=== PATIENT | female | born 2000 | race Caucasian/White ===

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

== ENCOUNTER 2019-08-13 17:14 | Emergency (ER) | payer BC, OTHER ==
--- NOTE | 2019-08-13 17:38 | EDM.PDOC ---
ED HPI GENERAL MEDICAL PROBLEM - General Chief Complaint: Lower Extremity Injury/Pain Stated Complaint: FELL DOWN STAIRS Time Seen by Provider: 08/13/19 17:30 Source of Information: Reports: Patient History Limitations: Reports: No Limitations - History of Present Illness INITIAL COMMENTS - FREE TEXT/NARRATIVE: Patient comes in the emergency department with complaints of left foot injury. Patient was walking down a flight of stairs at home misstepped on last 2 stairs and fell. She does not know how she landed on her foot other than she did notice severe pain initially rate after the injury. She denies hitting her head or any other extremity. She states that she has numbing and tingling sensation and she is unable to move her great toe due to the pain. She also noted that there was swelling initially after the injury. She did apply ice and elevate it at home prior to arrival to the emergency department. Pt denies any other injuries to that extremity in the past. The pain is more tolerable if she is resting on it. However she is unable to bear weight due to the pain Onset: Sudden Quality: Reports: Throbbing Severity: Moderate Improves with: Reports: Cold Therapy, Immobilization, Rest Worsens with: Reports: Movement Context: Reports: Activity Associated Symptoms: Reports: No Other Symptoms Left Feet Pain Score (Numeric/FACES): 7 - Related Data Allergies Allergy/AdvReac Type Severity Reaction Status Date / Time amoxicillin [From Augmentin] Allergy Vomiting Verified 08/13/19 17:36 clavulanic acid Allergy Vomiting Verified 08/13/19 17:36 [From Augmentin] Home Meds: Home Meds Escitalopram Oxalate 10 mg PO DAILY 08/13/19 [History] Norgestimate-Ethinyl Estradiol [Dawes-Linyah 28 Tablet] 1 each PO DAILY 08/13/19 [History] Propranolol HCl [Propranolol] 60 mg PO DAILY 08/13/19 [History] Past Medical History - Past Health History Medical/Surgical History: Denies Medical/Surgical History Review of Systems - Review of Systems Review Of Systems: Comprehensive ROS is negative, except as noted in HPI. Constitutional: Reports: No Symptoms Eyes: Reports: No Symptoms Ears: Reports: No Symptoms Nose: Reports: No Symptoms Mouth/Throat: Reports: No Symptoms Respiratory: Reports: No Symptoms Cardiovascular: Reports: No Symptoms GI/Abdominal: Reports: No Symptoms Genitourinary: Reports: No Symptoms Skin: Reports: No Symptoms ED EXAM, GENERAL - Physical Exam Exam: See Below Exam Limited By: No Limitations General Appearance: Alert, WD/WN, No Apparent Distress Respiratory/Chest: No Respiratory Distress, No Accessory Muscle Use, Chest Non- Tender Cardiovascular: Normal Peripheral Pulses, Regular Rate, Rhythm, No Edema Peripheral Pulses: 4+: Popliteal (L), Popliteal (R), Dorsalis Pedis (L), Dorsalis Pedis (R) Extremities: No Pedal Edema, Normal Capillary Refill Neurological: Alert, Oriented, Normal Cognition, Other (left foot. moderate swelling top/medial aspect of foot. Ecchymosis formation noted. EMS intact. Limited range of motion due to pain with flexion and external rotation) Psychiatric: Normal Affect Skin Exam: Warm, Dry, Intact, Normal Color Course - Vital Signs Last Recorded V/S: Last Vital Signs Temp 37.3 C 08/13/19 17:20 Pulse 60 08/13/19 17:20 Resp 16 08/13/19 17:20 BP 121/60 08/13/19 17:20 Pulse Ox 98 08/13/19 17:20 Departure - Departure Time of Disposition: 18:15 Disposition: Home, Self-Care 01 Condition: Good Clinical Impression: Fracture of proximal phalanx of toe of left foot Phalanges fracture, foot Qualifiers: Encounter type: initial encounter Toe: great toe Fracture type: closed Phalanx : distal Fracture alignment: nondisplaced Laterality: left Qualified Code(s): S92.425A - Nondisplaced fracture of distal phalanx of left great toe, initial encounter for closed fracture - Discharge Information *PRESCRIPTION DRUG MONITORING PROGRAM REVIEWED*: Not Applicable *COPY OF PRESCRIPTION DRUG MONITORING REPORT IN PATIENT VANNA: Not Applicable Instructions: RICE for Routine Care of Injuries, Toe Fracture, [id number], Cast or Splint Care, Adult, [id number], Pain Medicine Instructions, Easy-to- Read Forms: ED Department Discharge, ED Return to Work/School Form Additional Instructions: 1. rest 2. elevated the extremity above the level of the heart reduce swelling 3. Can place ice on affected extremity 3-4 times a day 20 minutes at a time 4. Can take Tylenol and ibuprofen as needed for pain and discomfort 5. Use splinting to help with compression to reduce swelling 6. Activity and diet as tolerated 7. Follow-up if not better within 2 weeks with orthopedic speciality for management 8. Remain non weightbearing on that foot until evaluated by orthopedic speciality 9. Use crutches to help with mobility 10. Call with any questions or concerns Sepsis Event Note - Evaluation Sepsis Screening Result: No Definite Risk - Focused Exam Vital Signs: Vital Signs Temp Pulse Resp BP Pulse Ox 08/13/19 17:20 37.3 C 60 16 121/60 98 Date Exam was Performed: 08/13/19 Time Exam was Performed: 18:12 - Assessment/Plan Assessment:: 1. left foot pain 2. Proximal phalanx fracture along the lateral and proximal base and distal phalanx fracture of the medial base extending through the subchondral endplate of the interphalangeal articulation Plan: 1. x-ray of left foot. Completed in the ER. Results reviewed with patient 2. Splinting/surgical boot with crutches applied to help with comfort 3. Education regarding RICE, immobilization, activity, diet, [id number] medication use, and follow-up care provided 4. Patient is educated to follow up with Orthopedic in 2 weeks for re- evaluation of foot. 5. Non weight bearing of the left foot until cleared by orthopedic 6. Patient requested work note through Sunday due to needing to stand for long periods of time 7. All questions and concerns were addressed prior to patient's discharge
--- NOTE | 2019-08-13 18:08 | CR ---
[id number] RAD/RAD Foot Left 3V Min Exam: RAD Foot Left 3V Min Indication:FALL DOWNSTAIRS,MOST POST AROUND BASE OF BIG TOE. Comparison: No prior imaging for comparison. Discussion: Acute nondisplaced fracture of the 1st digit phalanges. Distal phalanx fracture at its medial base extending through the subchondral endplate of the interphalangeal articulation. Proximal phalanx fracture is a capsular avulsion-type fracture along its lateral and proximal base. No other fractures are identified. No dislocation. Accessory ossicle adjacent to the dorsal navicular bone at the talonavicular articulation seen on lateral view. Impression: Acute nondisplaced fractures of the 1st digit phalanges, described above. Bernabe Patricio MD 08/13/19 [id number] Thank you for allowing us to participate in the care of your patient.
== END 2019-08-13 18:42 | disposition home or self-care (01) ==
LOC: VM.ED 17:14
DX: S92.415A Nondisplaced fracture of proximal phalanx of left great toe, initial encounter for closed fracture (principal); Z88.1 Allergy status to other antibiotic agents; Z79.899 Other long term (current) drug therapy; W10.8XXA Fall (on) (from) other stairs and steps, initial encounter; Y93.01 Activity, walking, marching and hiking
CPT/HCPCS: 73630-LT; 99283-25